=== PATIENT | female | born 1980 | race African-American/Black ===

== ENCOUNTER 2019-08-05 18:56 | Emergency (ER) | payer OTHER ==
[~2019-08-05] VITALS: Ht 167.6 cm; Wt 59.0 kg
--- NOTE | 2019-08-05 19:30 | Emergency Room Report ---
History of Present Illness General Chief Complaint: Multiple Trauma/Fall Source: Patient Present Illness HPI Disclaimer: Please note that this report is being documented using DRAGON technology. This can lead to erroneous entry secondary to incorrect interpretation by the dictating instrument. HPI: 38-year-old female presents for right foot and ankle pain. She tripped while walking down some stairs. Pain 8 out of 10 worse with movement. She states she has been able to ambulate since. She denies any other injuries. PMH: Patient denies any past medical history PSH: Reviewed Social Hx: Patient denies smoking drinking or illicit drug use Allergies: Coded Allergies: No Known Allergies (Unverified , 08/05/19) COVID-19 Screening Contact w/high risk pt: No Recent Travel to affected area: No Experienced COVID-19 symptoms?: No COVID-19 Testing performed APARTMENT GROUNDSKEEPER: No Patient History Reviewed Nursing Documentation: PMH: Agreed; PSxH: Agreed Nursing Documentation-PMH Past Medical History: No History, Except For Review of Systems All Other Systems: negative except mentioned in HPI Physical Exam Vital Signs Date Time Temp Pulse Resp B/P (MAP) Pulse Ox O2 Delivery O2 Flow Rate FiO2 08/05/19 19:01 98.2 63 20 127/80 (96) 100 Room Air Sp02 EP Interpretation: reviewed, normal General Appearance: well appearing, no apparent distress Head: normocephalic, atraumatic Eyes: bilateral eye PERRL, bilateral eye EOMI ENT: hearing grossly normal, moist mucus membranes Neck: full range of motion, supple Respiratory: lungs clear, normal breath sounds, no rhonchi, no respiratory distress, no retraction, no wheezing Cardiovascular #1: normal peripheral pulses, regular rate, rhythm, no murmur Gastrointestinal: non tender, soft, non-distended, no guarding Musculoskeletal: other - Right foot mildly tender, 2+ pulses, sensation intact , full range of motion with some pain, no obvious deformity. Neurologic: alert, oriented x3, no focal defects Skin: normal color, warm/dry Medical Decision Making Diagnostic Impression: Primary Impression: Foot sprain ER Course Differential diagnosis included but not limited to sprain versus contusion versus fracture. X-rays ordered. Ibuprofen given. X-rays did not show any obvious fracture or dislocation. Suspect sprain. Patient placed in a Rajesh wrap , provided crutches, provided analgesics and will be discharged with follow-up PMD and return precautions. Other X-Ray Diagnostic Results Other X-Ray Diagnostic Results #1: X-Ray ordered: X-ray right foot # of Views/Limited Vs Complete: 3 View Indication: Pain Interpretation: no dislocation, no fractures Impression: No acute disease Electronically Signed by: Philip Seo MD Other X-Ray Diagnostic Results #2: X-Ray ordered: X-ray right ankle # of Views/Limited Vs Complete: 3 View Indication: Pain EP Interpretation: Yes Interpretation: no dislocation, no fractures Impression: No acute disease Electronically Signed by: Philip Seo MD Last Vital Signs Date Time Temp Pulse Resp B/P (MAP) Pulse Ox O2 Delivery O2 Flow Rate FiO2 08/05/19 19:01 98.2 63 20 127/80 (96) 100 Room Air Status: improved Disposition: HOME, SELF-CARE Condition: Stable Scripts Ibuprofen* (MOTRIN*) 600 Mg Tablet 600 MG ORAL Q6H PRN for FOR PAIN, #20 TAB 0 Refills Prov: Philip Seo M.D. 08/05/19 Referrals: NOT CHOSEN ABRAHAM/,REFERRING (PCP) Philip Seo M.D. Aug 05, 2019 19:30
--- NOTE | 2019-08-05 19:58 | Diagnostic Imaging Report ---
EXAM: XR Right Foot Complete, 3 or More Views CLINICAL HISTORY: PAIN TECHNIQUE: Frontal, lateral and oblique views of the right foot. COMPARISON: None FINDINGS: Bones/joints: No displaced fracture or dislocation identified. Joint space is maintained. No bony lesion. Soft tissues: Mild soft tissue swelling. IMPRESSION: No displaced fracture or dislocation identified.
[2019-08-05] MEDS ORDERED: IBUPROFEN600 M1 ORAL (20:05)
[2019-08-05 20:15] VITALS: BP 119/74
[2019-08-05 20:25] VITALS: BP 119/74
--- NOTE | 2019-08-06 09:42 | Diagnostic Imaging Report ---
Indication: Right ankle pain Technique: 3 views of the right ankle Comparison: none Findings: No acute fractures. No dislocations. The joint spaces are preserved Impression: Negative
== END 2019-08-05 20:25 | disposition home or self-care (01) ==
LOC: EMR 19:05
DX: S93.601A Unspecified sprain of right foot, initial encounter (principal); W10.9XXA Fall (on) (from) unspecified stairs and steps, initial encounter; Y93.9 Activity, unspecified; Y92.9 Unspecified place or not applicable
CPT/HCPCS: 99284